=== PATIENT | female | born 1970 | race Caucasian/White ===

== ENCOUNTER → 2021-08-18 | Outpatient (CLI) | payer BC, OTHER ==
[~2021-08-18] MED LIST: GADOTERATE 0.5 MMOL/ML (CLARISCAN) 20 ML VIAL IV ONE; HOLD METFORMIN - RECEIVED CONTRAST 20 ML VIAL IV SCH; IOHEXOL 350 MG/ML 100 ML (OMNIPAQUE 350) VIAL IV ONE; NS 100 ML (IVPB) BAG IV ONE
--- NOTE | 2021-08-18 08:40 | Diagnostic Imaging Report ---
EXAMINATION: CT chest with intravenous contrast. TECHNIQUE: Multiple contiguous axial images were obtained through the chest after the uneventful administration of intravenous contrast. All CT scans use one or more of the following dose optimizing techniques: automated exposure control, MA and/or KvP adjustment based on patient size and exam type or iterative reconstruction. HISTORY: WHEEZING COMPARISON: None available. FINDINGS: Thyroid: The thyroid is normal. Mediastinum: Heart size is normal without significant pericardial effusion. The aorta is normal in caliber. No suspicious lymphadenopathy. Lungs and airways: The lungs are clear without consolidation, pleural effusion, or pneumothorax. There are a few scattered subcentimeter pulmonary nodules the largest nodule measuring 0.3 cm in the right lower lobe (series 3 image 99). The airways are normal. Upper abdomen: The subphrenic structures are normal. Musculoskeletal: Degenerative changes of the spine without suspicious osseous lesion or compression fracture. IMPRESSION: 1. No acute abnormality in the chest. 2. Pulmonary micronodules measuring up to 0.3 cm in the right lower lobe. If patient is low risk for malignancy, no followup is needed. If patient is high-risk, followup CT chest could be performed in 6-12 months. Dictated by: Dictated on workstation # [id number]
--- NOTE | 2021-08-18 09:47 | Diagnostic Imaging Report ---
Clinical Indication: Patient has a blurry spot in her left eye. Exam: MRI of the brain performed without and with 14 cc of IV contrast. Sequences include axial DWI, ADC map, axial gradient echo, axial FLAIR, axial T1, axial T2, axial T1 post IV contrast whole brain, coronal T1 fat-sat post IV contrast whole brain, and sagittal T1 fat-sat post IV contrast whole brain. Comparison: None. Findings: There is no evidence of acute cerebral infarct, intracranial hemorrhage, or gross mass effect. The brain parenchymal volume appears appropriate for patient's age. There are multiple focal areas of high T2 signal white matter changes predominantly involving the white matter of the right cerebral hemisphere, this may be from chronic ischemic changes. Remainder of the brain parenchyma is unremarkable for age. There is normal luke-white matter distinction. There is no significant midline shift or herniation. The [place] vascular structures show no gross abnormality as visualized. The pituitary gland, sella, and suprasellar regions are unremarkable as visualized. There is no evidence of hydrocephalus. The basal cisterns are unremarkable. The skull, extracranial soft tissue, and orbits are unremarkable. There is mild mucosal thickening involving the ethmoid sinus and left maxillary sinus. There is minimal fluid in both mastoid air cells. Temporal bones show no significant abnormality. IMPRESSION: Unremarkable MRI of the brain for age. There is no evidence of acute intracranial abnormality. There is no gross abnormality involving the orbits, globes, or visualized portions optic nerves. Dictated by: Dictated on workstation # [id number]
== END ==
LOC: RAD 08:00
PROVIDERS: ATTEND Nurse Practitioner Family
DX: H46.9 Unspecified optic neuritis (principal); R91.8 Other nonspecific abnormal finding of lung field
CPT/HCPCS: 70553; 71260

== ENCOUNTER → 2022-08-24 | Outpatient (CLI) | payer BC ==
--- NOTE | 2022-08-24 16:47 | Diagnostic Imaging Report ---
EXAMINATION: CT chest without contrast. TECHNIQUE: Multiple contiguous axial images were obtained through the chest without the use of intravenous contrast. All CT scans use one or more of the following dose optimizing techniques: automated exposure control, MA and/or KvP adjustment based on patient size and exam type or iterative reconstruction. HISTORY: Lung nodule COMPARISON: 08/18/2021 FINDINGS: There is no edema or pneumonia. No pleural effusion. No pneumothorax. The 3 mm right lower lobe nodules unchanged. No new nodule. There is no axillary or supraclavicular lymphadenopathy. There is no mediastinal lymphadenopathy. Heart size is normal. There are no coronary artery calcifications. No pericardial effusion. Aorta is normal in caliber. Limited views of the upper abdomen are unremarkable. There are no suspicious osseus lesions. IMPRESSION: 1. Unchanged tiny right lower lobe nodule. No further followup needed. Dictated by: Dictated on workstation # [id number]
== END ==
LOC: RAD 15:45
PROVIDERS: ATTEND Nurse Practitioner Family
DX: R91.1 Solitary pulmonary nodule (principal)
CPT/HCPCS: 71250

== ENCOUNTER → 2023-02-27 | Outpatient (CLI) | payer BC ==
--- NOTE | 2023-02-27 09:50 | Diagnostic Imaging Report ---
INDICATION: Palpitations, chronic left knee pain. COMPARISON: 08/24/2022 TECHNIQUE: Frontal and lateral radiographs of the chest dated 02/27/2023 FINDINGS: The cardiac silhouette is within normal limits in size. No significant pulmonary vascular congestion. The lungs are clear of focal pulmonary opacity. No pleural effusion. No pneumothorax. No acute osseous abnormality. IMPRESSION: Stable appearing examination without acute cardiopulmonary abnormality. Dictated by: Dictated on workstation # [id number]
--- NOTE | 2023-02-27 12:09 | Diagnostic Imaging Report ---
Indication: Left knee pain AP, lateral, sunrise views of the left knee are obtained. No fracture or acute bony abnormality seen. Joint spaces are unremarkable. Impression: Negative left knee. Dictated by: Dictated on workstation # [id number]
== END ==
LOC: RAD 08:47
PROVIDERS: ATTEND Physician Assistant
DX: M25.562 Pain in left knee (principal); G89.29 Other chronic pain; R00.2 Palpitations
CPT/HCPCS: 71046; 73562; 93005

== ENCOUNTER → 2023-03-09 | Outpatient (CLI) | payer BC | LOC: CARD 08:59 | PROVIDERS: ATTEND Family Medicine | DX: R00.2 Palpitations (principal) | CPT/HCPCS: 93225; 93226 ==